=== PATIENT | female | born 1935 | race Caucasian/White ===

== ENCOUNTER 2019-02-10 15:36 | Observation (INO) | payer OTHER ==
[~2019-02-10] VITALS: Ht 160 cm; Wt 67.6 kg
[2019-02-10 15:39] VITALS: BP 151/89
[2019-02-10] MEDS ORDERED: ARICEPT 5 MG TAB5 MG PO (15:47)
[2019-02-10] MEDS ORDERED: RESTORIL15 MG PO (15:48)
[2019-02-10] MEDS ORDERED: NORCO 7.5-3251 EACH PO (15:48)
[2019-02-10] MEDS ORDERED: COLACE100 MG PO (15:48)
[2019-02-10] MEDS ORDERED: SYNTHROID75 MCG PO (15:48)
[2019-02-10] MEDS ORDERED: SINEMET 10-1001 EAC1 PO (15:50)
[2019-02-10 16:32] LABS: ABSOLUTE BASOPHILS 0.1 thou/uL (0.0-0.2); HEMATOCRIT 35.7 % (37.0-47.0); MPV 9.5 fl. (7.2-11.1)
[2019-02-10 16:37] LABS: ABSOLUTE EOSINOPHILS 0.1 thou/uL (0.0-0.7); ABSOLUTE LYMPHOCYTES 2.1 thou/uL (0.8-5.3); ABSOLUTE MONOCYTES 0.2 thou/uL (0.0-1.2); ABSOLUTE NEUTROPHILS 3.4 thou/uL (1.6-8.1); EOSINOPHILS 2.3 %; HEMOGLOBIN 11.8 gm/dL (12.0-15.0); LYMPHOCYTES 34.8 %; MCH 30.2 pg (26.0-34.0); MCHC 33.1 g/dL (28.0-37.0); MCV 91.1 fL (80.0-100.0); MONOCYTES 3.9 %; NUCLEATED RBCS 0 /100WBC; PLATELET COUNT* 269 thou/uL (150-400); RBC 3.91 mil/uL (4.20-5.00); RDW-CV 13.7 % (10.5-14.5); WBC 5.9 thou/uL (4.0-11.0)
[2019-02-10 16:42] LABS: INR 1.1; PROTIME 10.9 Seconds (9.20-11.50)
[2019-02-10 16:52] LABS: ANION GAP 10 mmol/L (7-16); BUN 13 mg/dL (7-18); CALCIUM 8.8 mg/dL (8.5-10.1); CHLORIDE 103 mmol/L (98-107); CO2 26 mmol/L (21-32); CREATININE 0.8 mg/dL (0.6-1.3); GLUCOSE 103 mg/dL (70-99); POTASSIUM 3.9 mmol/L (3.5-5.1); SODIUM 139 mmol/L (136-145); TROPONIN-I LEVEL <0.06 ng/mL (<0.06)
[2019-02-10 16:54] LABS: ALBUMIN 3.6 g/dL (3.4-5.0); ALKALINE PHOSPHATASE 102 U/L (46-116); LIPASE 111 U/L (73-393); NT-PRO BRAIN NAT PEPTIDE 193 pg/mL (<300); SGOT 13 U/L (15-37); SGPT < 6 U/L (30-65); TOTAL BILIRUBIN 0.2 mg/dL (<0.1-1.0); TOTAL PROTEIN 7.9 g/dL (6.4-8.2)
[2019-02-10 18:00] VITALS: BP 155/59
--- NOTE | 2019-02-10 18:20 | NUR ---
PT ARRIVED TO UNIT AT APPROX 1814, ORIENTED PT AND DAUGHTER TO CALL LIGHT AND ROOM. PT DENIES ANY PAIN/SOA AT THIS TIME. EDUCATED ON SITTING UP WHEN EATING AND APPROX 30 MINUTES POST PT AND DAUGHTER FEEL PTS "CHEST PAIN" IS ACID REFLUX RELATED D/T PT CONT EATING WHILE LAYING DOWN. WILL CONT POC.
[2019-02-10 20:00] VITALS: BP 137/52
[2019-02-10 23:17] LABS: URINE BILIRUBIN NEGATIVE (Negative); URINE BLOOD NEGATIVE (Negative); URINE CLARITY CLEAR; URINE COLOR STRAW; URINE GLUCOSE-RANDOM NEGATIVE (Negative); URINE KETONES NEGATIVE (Negative); URINE LEUKOCYTES-REFLEX 1+ (Negative); URINE NITRITE-REFLEX NEGATIVE (Negative); URINE PROTEIN NEGATIVE (Negative); URINE UROBILINOGEN 0.2 E.U./dl (0.2-1.0)
[2019-02-10 23:45] LABS: CASTS None Seen /LPF (None Seen); SQUAMOUS 0-3 Few /LPF (0-3)
[2019-02-10 23:46] LABS: BACTERIA-REFLEX 1-9 Few /HPF (None Seen); CRYSTALS None Seen /LPF (None Seen); URINE RBC 0-2 Rare /HPF (0-2); URINE WBC-REFLEX 0-5 Rare /HPF (0-5)
[2019-02-11] VITALS: BP 150/67
--- NOTE | 2019-02-11 02:57 | NUR ---
RECIEVED REPORT AND ASSUMED CARE AT 1900. APPLICATIONS SUPPORT SPECIALIST IN PLACE. VITAL SIGNS STABLE. PT UP ADLIB. PT HAD SOME STERNAL PAIN FROM LIKE INDIGESTION AND DR ORDERED ONE DOSE OF MED THAT HELPED CONTROL PAIN. ASSESSMENT COMPLETED DISCUSSED PLAN OF CARE AND PT UNDERSTANDS. BED LOCKED AND CALL LIGHT WITHIN REACH. FALL PRECAUTIONS IN PLACE. HOURLY ROUNDING DONE AND ALL NEEDS MET. NURSING WILL CONTINUE TO MONITOR.
[2019-02-11 04:00] VITALS: BP 159/50
[2019-02-11 08:00] VITALS: BP 154/60
--- NOTE | 2019-02-11 08:00 | NUR ---
ASSUMED PT CARE AT 0700, A&O X4, FALL PRECAUTIONS IN PLACE, CALL LIGHT IN REACH, UP WITH STANDBY. VSS, RA, DATA SCIENCE AND IOT MANAGER TRACING SINUS RHYTHM. DENIES ANY CHEST PAIN OR SOA. CARDIOLOGY SIGNED OFF, FAMILY NOTIFIED. WILL CONT POC.
[2019-02-11 12:09] VITALS: BP 141/53
[2019-02-11] MEDS ORDERED: KEFLEX500 M1 PO (12:35)
[2019-02-11] MEDS ORDERED: PROTONIX40 M1 PO (12:35)
--- NOTE | 2019-02-11 13:22 | EKG ---
[place] [address] ELECTROCARDIOGRAM REPORT Name: ANGUSHORTENSIA Room: [address] ADM IN ..#: [id number] Admission: 02/10/19 Attend Phys: Enmanuel Harrison, Discharge: Date of : 31 Report #: [id number] THIS REPORT FOR: //name// [facility] ED Test Date: 2019-02-10 Test Time: 15:42:05 Pat Name: HORTENSIA GRECO Department: Room: [facility] Gender: F Set Off Blocker: : 1935 Requested By: Mehul Laws Order Number: [id number] MD: Emile Ren Measurements Intervals [place] Rate: 72 P: 71 NE: 167 QRS: 39 QRSD: 105 T: 52 QT: 419 QTc: 459 Interpretive Statements Sinus rhythm No previous ECG available for comparison Electronically Signed On 02-11-2019 13:22:30 CDT by Emile Ren [email or web address] <ELECTRONICALLY SIGNED> By: Emile Ren MD, [facility] 02/11/19 1322 1542 1542 Emile Ren MD, FACC /EPI
[2019-02-11 14:07] VITALS: BP 141/53
[2019-02-11 14:30] LABS: CALCIUM 9.5 mg/dL (8.5-10.1); CREATININE 0.9 mg/dL (0.6-1.3); MAGNESIUM 2.4 mg/dL (1.8-2.4); POTASSIUM 4.3 mmol/L (3.5-5.1)
--- NOTE | 2019-02-11 15:15 | NUR ---
PT DISCHARGED HOME AT APPROX 1510 WITH DAUGHTER AND NURSING STAFF VIA . EDUCATED ON ALL DISCHARGE INSTRUCTIONS INCLUDING FOLLOW UP APPTS AND MEDICATIONS. PT ADVISED TO SEE GI FOR OUT PT PROCEDURE. HOURLY ROUNDING COMPLETED. IV AND FERTILIZER MIXER REMOVED.
--- NOTE | 2019-02-12 12:46 | CON ---
[address] [address] CONSULTATION Name: HORTENSIA GRECO Room: [address] Rajendra Graham#: [id number] Admission: 02/10/19 Attend Phys: Enmanuel Harrison, Discharge: 02/11/19 Date of : 31 Report #: [id number] THIS REPORT FOR: //name// CC: Nanci Harrison DATE OF SERVICE: 02/11/2019 HISTORY OF PRESENT ILLNESS: The patient is an 84-year-old single female who I was asked to see in the hospital after she complained of epigastric pain. The patient has no previous history of heart disease. She does have a history of occasional indigestion. She notes for the past 2 days, she has felt an epigastric discomfort. She describes a sharp discomfort after she ate something 2 days ago. It has been a constant discomfort. She denies any radiation of the pain. No associated shortness of breath, diaphoresis, nausea. She has had no vomiting. She has had no blood in her stool. Denied any fever, cough, trauma to her chest or rash. Her daughter brought her to the Emergency Room yesterday and she was admitted. She denies exertional dyspnea, palpitations or syncope. PAST MEDICAL HISTORY: Significant for cholecystectomy, back surgery. She notes a few weeks ago, she slipped outside and fell, injured her right shoulder and required shoulder surgery at [facility]. She has no history of hypertension, diabetes or hyperlipidemia. MEDICATIONS: Her only medication is Synthroid. ALLERGIES: She has an allergy to CODEINE. FAMILY HISTORY: Negative for heart disease. SOCIAL HISTORY: She is , lives in [place], [place], by herself, though she occasionally lives with her daughter. No smoking or alcohol abuse. REVIEW OF SYSTEMS: She has had no history of stroke, asthma, peptic ulcer disease, liver disease, kidney disease, cancer, psychiatric illness, chronic skin condition. PHYSICAL EXAMINATION: GENERAL: Revealed an elderly female lying in bed. She appeared in no acute distress. VITAL SIGNS: She had a blood pressure of 140/70, pulse 60. She was afebrile. HEENT: She was anicteric, conjunctiva pink. Mucous membranes moist. NECK: Veins not distended. No carotid bruits. Neck supple. CHEST: Clear to auscultation. HEART: Regular rate and [place] [address] CONSULTATION Name: HORTENSIA GRECO [address] [id number] Admission: 02/10/19 Attend Phys: Enmanuel Harrison, Discharge: 02/11/19 Date of : 31 Report #: [id number] ABDOMEN: Soft. EXTREMITIES: Had no edema. The dorsalis pedis pulse was 2+ bilaterally. SKIN: Warm and dry. NEUROLOGIC: Nonfocal. LYMPH: No adenopathy. MUSCULOSKELETAL: No joint effusion. DIAGNOSTIC DATA: Her ECG showed a sinus rhythm. There was no significant ST or T-wave change. Her workup last night in the Emergency Room, she had a portable chest x-ray that showed normal heart size, minimal atelectasis. LABORATORY DATA: Sodium 139, creatinine 0.8. Her troponin 0.06. White blood cell count 5.9, hemoglobin 11.8. IMPRESSION AND RECOMMENDATIONS: 1. Epigastric pain. Minimal risk factors for coronary artery disease. No evidence of acute coronary syndrome. Recommend no further cardiac evaluation. I suspect her epigastric discomfort is gastrointestinal in etiology. I would not recommend any further cardiac workup at this time. 2. Recent fall with surgery required on her right shoulder. <ELECTRONICALLY SIGNED> By: Emile Ren MD, FACC 02/12/19 1246 0823 [id number] Ren MD, FACC /nt
== END 2019-02-11 15:10 | disposition home or self-care (01) ==
LOC: M.ERS 15:36 → M.TBA-ER 17:03 → M.2W 17:03
PROVIDERS: Emergency Medicine; Internal Medicine; ADMIT Family Medicine
DX: K21.9 Gastro-esophageal reflux disease without esophagitis (principal); N39.0 Urinary tract infection, site not specified; G20 Parkinson's disease; F02.80 Dementia in other diseases classified elsewhere, unspecified severity, without behavioral disturbance, psychotic disturbance, mood disturbance, and anxiety; E03.9 Hypothyroidism, unspecified; Z88.5 Allergy status to narcotic agent; Z79.899 Other long term (current) drug therapy

== ENCOUNTER 2021-05-25 13:58 | Emergency (ER) | payer MEDICARE ==
[~2021-05-25] VITALS: Ht 157.5 cm; Wt 67.1 kg
[~2021-05-25 13:58] MED LIST: ARICEPT 5 MG TAB5 MG PO; COLACE100 MG PO; KEFLEX500 M1 PO; NORCO 7.5-3251 EACH PO; PROTONIX40 M1 PO; RESTORIL15 MG PO; SINEMET 10-1001 EAC1 PO; SYNTHROID75 MCG PO
[2021-05-25] MEDS ORDERED: TRAZODONE HCL50 MG PO (14:07)
[2021-05-25] MEDS ORDERED: VITAMIN D21250 MCG PO (14:07)
[2021-05-25] MEDS ORDERED: LEVO-T50 MCG PO (14:08)
[2021-05-25] MEDS ORDERED: CALCIUM500 MG PO (14:08)
[2021-05-25] MEDS ORDERED: TERBINAFINE HC250 MG PO (14:08)
[2021-05-25] MEDS ORDERED: LORATIDINE 10 M10 M1 PO (14:08)
[2021-05-25 15:59] LABS: ABSOLUTE EOSINOPHILS 0.2 thou/uL (0.0-0.7); ABSOLUTE LYMPHOCYTES 2.5 thou/uL (0.8-5.3); ABSOLUTE MONOCYTES 0.3 thou/uL (0.0-1.2); ABSOLUTE NEUTROPHILS 2.2 thou/uL (1.6-8.1); BASOPHILS 0.8 %; EOSINOPHILS 3.9 %; HEMATOCRIT 39.2 % (37.0-47.0); LYMPHOCYTES 47.4 %; MCH 30.4 pg (26.0-34.0); MCHC 33.2 g/dL (28.0-37.0); MCV 91.5 fL (80.0-100.0); MONOCYTES 6.5 %; MPV 8.7 fl. (7.2-11.1); NUCLEATED RBCS 0 /100WBC; PLATELET COUNT* 251 thou/uL (150-400); POLYS 41.4 %; RBC 4.29 mil/uL (4.20-5.00); RDW-CV 14.1 % (10.5-14.5); WBC 5.3 thou/uL (4.0-11.0)
[2021-05-25 16:08] LABS: CALCIUM 8.5 mg/dL (8.5-10.1); POTASSIUM 3.5 mmol/L (3.5-5.1)
[2021-05-25 16:13] LABS: ALBUMIN 3.8 g/dL (3.4-5.0); TOTAL BILIRUBIN 0.3 mg/dL (<0.1-1.0)
[2021-05-25 16:53] LABS: URINE BILIRUBIN NEGATIVE (Negative); URINE BLOOD NEGATIVE (Negative); URINE CLARITY CLEAR; URINE COLOR YELLOW; URINE GLUCOSE-RANDOM NEGATIVE (Negative); URINE KETONES NEGATIVE (Negative); URINE LEUKOCYTES-REFLEX NEGATIVE (Negative); URINE NITRITE-REFLEX NEGATIVE (Negative); URINE PROTEIN NEGATIVE (Negative); URINE SPECIFIC GRAVITY >= 1.030 (1.005-1.030); URINE UROBILINOGEN 0.2 E.U./dl (0.2-1.0)
--- NOTE | 2021-05-25 17:08 | EKG ---
[place] [address] ELECTROCARDIOGRAM REPORT Name: HORTENSIA GRECO Room: [facility]#: [id number] Admission: 05/25/21 Attend Phys: Discharge: Date of : 31 Date of Service: 05/25/21 [facility] Report #: [id number] THIS REPORT FOR: //name// [facility] ED Test Date: 2021-05-25 Test Time: 16:40:03 Pat Name: HORTENSIA GRECO Department: Room: Gender: F Boat Officer: : 1935 Requested By: Luca Felix Order Number: [id number] MD: Emile Ren Measurements Intervals [place] Rate: 63 P: 74 NE: 183 QRS: 50 QRSD: 102 T: 66 QT: 413 QTc: 423 Interpretive Statements Sinus rhythm Borderline low voltage, extremity leads Compared to ECG 02/10/2019 15:42:05 No significant changes Electronically Signed On 05-25-2021 17:08:23 CDT by Emile Ren [email or web address] <ELECTRONICALLY SIGNED> By: Emile Ren MD, [facility] 05/25/21 3608 1640 1640 Emile Ren MD, [facility] /EPI
[2021-05-25 18:00] VITALS: BP 134/68
== END 2021-05-25 18:08 | disposition home or self-care (01) ==
LOC: M.ERS 13:58
PROVIDERS: Physician Assistant
DX: R53.1 Weakness (principal); E03.9 Hypothyroidism, unspecified; Z88.5 Allergy status to narcotic agent